=== PATIENT | male | born 1955 | race Caucasian/White ===

== ENCOUNTER → 2017-04-25 | Outpatient (CLI) | payer OTHER ==
--- NOTE | ~2017-04-25 | MCT ---
[facility] [place] [address] METHACHOLINE CHALLENGE TEST Name: LA TATE Room #: REG CLChelsea Mata#: [id number] Admission: 04/25/17 Attend Phys: Cole Venegas MD Discharge: Date of : 57 Report #: [id number] THIS REPORT FOR: //name// COPIES FOR: AGE: 61 SEX/RACE: M/C Height: 74 in Exam Date: 04/25/17 Weight: 182 lbs BTPS: X >> PRE BRONCHODILATOR: PREDICTED BEST %PRED FORCED VITAL CAPACITY (FRC) 5.30 L 5.79 LPM 109 % FORCED EXP VOL/SEC (FEV1) 4.24 L 3.91 FEV/FVC 92 % MAX MID-EXP FLOW (FEF 25-75) 4.19 L/SEC 2.15 L/SEC 51 % PEAK EXP FLOW RATE (FEF MAX) 9.57 L/MIN 9.62 L/MIN MED-VC RATIO (FEF 50/FEF 50) .09 Baseline: Phenol Saline Level 1: 0.025 mg/ml BEST %PRED %CHANGE BEST %PRED %CHANGE FVC 6.06 L 114 % 5 % FVC 6.10 L 115 % 1 % FEV1 4.22 L 100 % 8 % FEV1 4.28 L 101 % 1 % Level 2: 0.25 mg/ml Level 3: 2.5 mg/ml BEST %PRED %CHANGE BEST %PRED %CHANGE FVC 6.38 L 120 % 5 % FVC 6.02 L 114 % -1 % FEV1 4.46 L 105 % 6 % FEV1 4.18 L 99 % -1 % . Level 4: 10 mg/ml Level 5: 25 mg/ml BEST %PRED %CHANGE BEST %PRED %CHANGE FVC 6.38 L 120 % 5 % FVC 6.11 L 115 % 1 % FEV1 4.43 L 105 % 5 % FEV1 4.30 L 102 % 2 % Post Bronchodilator: 1st Treatment Post Bronchodilator: 2nd Treatment BEST %PRED %CHANGE BEST %PRED %CHANGE FVC 6.12 L 115 % 1 % FVC L % % FEV1 4.35 L 103 % 3 % FEV1 L % % Post Bronchodilator: 3rd Treatment BEST %PRED %CHANGE [address] [address] METHACHOLINE CHALLENGE TEST Name: NIRULA MODI Room #: REG [facility] Adoflo#: [id number] Admission: 04/25/17 Attend Phys: Cole Venegas MD Discharge: Date of : 57 Report #: [id number] FVC L % % FEV1 L % % >> COMMENTS: NORMAL METHACHOLINE CHALLENGE By: Francis Laurent MD /LYT
== END ==
LOC: MRI 07:53 → PUL 08:57 → MRI 09:16
DX: R06.00 Dyspnea, unspecified (principal)

== ENCOUNTER → 2021-03-01 | Outpatient (CLI) | payer BC, OTHER | LOC: SJCVCIMAG 11:56 | PROVIDERS: ATTEND Family Medicine | DX: I49.9 Cardiac arrhythmia, unspecified (principal); I49.1 Atrial premature depolarization; I25.10 Atherosclerotic heart disease of native coronary artery without angina pectoris; R93.1 Abnormal findings on diagnostic imaging of heart and coronary circulation ==